=== PATIENT | born 1965 | race Caucasian/White ===

== ENCOUNTER → 2023-02-27 11:17 | Outpatient (BNVA) | payer MEDICAID, SELFPAY | PROVIDERS: PCP Family Medicine; Visit Provider Internal Medicine Rheumatology | DX: M17.11 Unilateral primary osteoarthritis, right knee (principal); M19.021 Primary osteoarthritis, right elbow; Z11.59 Encounter for screening for other viral diseases; Z79.899 Other long term (current) drug therapy; M05.79 Rheumatoid arthritis with rheumatoid factor of multiple sites without organ or systems involvement; I63.9 Cerebral infarction, unspecified | CPT/HCPCS: 36415; 73070; 73130; 73562; 73630; 80076; 82306; 82565; 85651; 86140; 86480; 86704; 86803; 87340; 99204 ==

== ENCOUNTER → 2024-06-16 10:36 | Outpatient (BNVA) | payer MEDICAID, SELFPAY | PROVIDERS: PCP Family Medicine; Visit Provider Internal Medicine Rheumatology | DX: Z79.899 Other long term (current) drug therapy (principal); M05.79 Rheumatoid arthritis with rheumatoid factor of multiple sites without organ or systems involvement | CPT/HCPCS: 36415; 80076; 82565; 85025; 85651; 86140 ==